=== PATIENT | male | born 2005 | race Caucasian/White ===

== ENCOUNTER 2023-01-06 01:55 | Emergency (ER) | payer MEDICAID ==
[~2023-01-06] VITALS: Ht 170.2 cm; Wt 77.1 kg
--- NOTE | 2023-01-06 02:18 | NUR ---
BIB family via wheel-chair to room #4, informed of plan of care. #20g established, blood collected and sent to lab. ER provider at bedside for exam. No s/s of any distress, c/o left side abd pain and no BM x 4 days.
[2023-01-06] MEDS ORDERED: IV NORMAL SALINE 1000 ML BAG IV ONE (02:30)
[2023-01-06] MEDS ORDERED: FAMOTIDINE. 20 MG/2 ML VIAL IV ONE ×2 (02:30→02:39)
[2023-01-06] MEDS ORDERED: KETOROLAC TROMETHAMINE 15 MG INJ IVP ONE (02:30)
[2023-01-06] MEDS ORDERED: METOCLOPRAMIDE HCL 10 MG/2 ML VIAL IV ONE (02:30)
[2023-01-06 02:32] LABS: HEMATOCRIT 43.9 % (36.7-47.1); MEAN CORPUSCULAR HEMOGLOBIN 29.2 uug (23.8-33.4); MEAN CORPUSCULAR VOLUME 85.6 fL (73.0-96.2); PLATELET COUNT (AUTO) 174 K/uL (152-348)
[2023-01-06] MEDS ORDERED: METOCLOPRAMIDE HCL 10 MG/2 ML VIAL ONE (02:38)
[2023-01-06] MEDS ORDERED: KETOROLAC TROMETHAMINE 15 MG INJ ONE (02:38)
[2023-01-06 02:39] LABS: CARBON DIOXIDE 25 mmol/L (21-32); CHLORIDE 104 mmol/L (98-107); CREATININE 0.8 mg/dL (0.6-1.3); POTASSIUM 3.8 mmol/L (3.5-5.1); UREA NITROGEN, BLOOD 18 mg/dL (7-18)
[2023-01-06 02:45] LABS: ALANINE AMINOTRANSFERASE 74 U/L (16-63); ALKALINE PHOSPHATASE 83 U/L (50-136); ASPARTATE AMINOTRANSFERASE 26 U/L (15-37); BILIRUBIN,DIRECT < 0.1 mg/dL (0.0-0.2); BILIRUBIN,TOTAL 0.3 mg/dL (0.2-1.0); LIPASE 45 U/L (73-393)
--- NOTE | 2023-01-06 02:48 | NUR ---
Medicated as per order, IVF infusing well, will continue to monitor.
--- NOTE | 2023-01-06 03:23 | NUR ---
Patient sleeping at this time, IVF complete, awaiting MD re-eval.
[2023-01-06] MEDS ORDERED: IOHEXOL 300MG/ML 100 ML INFUS..BTL ONE (03:57)
[2023-01-06] MEDS ORDERED: IV NORMAL SALINE 250 ML IV ONE (03:57)
[2023-01-06] MEDS ORDERED: SWABABLE VALVE TRANSFER SET EA MC ONE (03:57)
--- NOTE | 2023-01-06 03:57 | NUR ---
To CT at this time via wheel-chair.
--- NOTE | 2023-01-06 04:11 | NUR ---
Returned from CT, awaiting results.
--- NOTE | 2023-01-06 05:21 | NUR ---
Patient continues to rest without any c/o pain or discomfort.
[2023-01-06 05:22] VITALS: O2SAT 99
--- NOTE | 2023-01-06 05:28 | NUR ---
ER provider at bedside.
[2023-01-06] MEDS ORDERED: MAGNESIUM HYDROXIDE 30 ML LIQUID UDC ONE (05:30)
[2023-01-06] MEDS ORDERED: MAGNESIUM HYDROXIDE 30 ML LIQUID UDC PO ONE (05:30)
[2023-01-06] MEDS ORDERED: POLY17PO4 PO (05:32)
[2023-01-06] MEDS ORDERED: SENN1TAB33 PO (05:32)
--- NOTE | 2023-01-06 05:43 | NUR ---
HL REMOVED, [facility] PROVIDED REMAINS STABLE FOR DISCHARGE.
[2023-01-06 05:44] VITALS: BP 128/64
== END 2023-01-06 05:45 | disposition home or self-care (01) ==
LOC: ER 02:02
DX: K59.00 Constipation, unspecified (principal); F17.210 Nicotine dependence, cigarettes, uncomplicated; Z88.0 Allergy status to penicillin; Z88.5 Allergy status to narcotic agent; Z79.899 Other long term (current) drug therapy
CPT/HCPCS: 99285; 74177; 96374; 96375; 96361; 80076; 80048; 83690; 85025; J3490; J1885; J2765; Q9967; J7040; A4663

== ENCOUNTER 2023-02-01 21:04 | Emergency (ER) | payer MEDICAID ==
[~2023-02-01] VITALS: Ht 170.2 cm; Wt 79.4 kg
[~2023-02-01 21:04] MED LIST: POLY17PO4 PO; SENN1TAB33 PO
[2023-02-01] MEDS ORDERED: TRAM50TA2 PO (21:26)
[2023-02-01] MEDS ORDERED: OXYCODONE/APAP 5-325 MG TABLET PO ONE (21:30)
[2023-02-01] MEDS ORDERED: OXYCODONE/APAP 5-325 MG TABLET ONE (21:35)
[2023-02-01 22:42] VITALS: BP 118/75; TEMP 97.8; O2SAT 98
== END 2023-02-01 22:43 | disposition home or self-care (01) ==
LOC: ER 21:10
DX: L60.0 Ingrowing nail (principal); F17.210 Nicotine dependence, cigarettes, uncomplicated; Z71.6 Tobacco abuse counseling; Z88.0 Allergy status to penicillin; Z88.5 Allergy status to narcotic agent; Z79.899 Other long term (current) drug therapy
CPT/HCPCS: A4663

== ENCOUNTER 2023-12-16 06:16 | Emergency (ER) | payer MEDICAID ==
[~2023-12-16] VITALS: Ht 170.2 cm; Wt 68.0 kg
[~2023-12-16 06:16] MED LIST changes: +TRAM50TA2 PO
[2023-12-16] MEDS ORDERED: NEOMY/BACITRAC/POLYMI OINT 28.35 GM TUBE ONE (06:31)
[2023-12-16] MEDS ORDERED: NEOMY/BACITRA/POLYMYXIN B OINT UD PACKET TP ONE (06:33)
[2023-12-16] MEDS ORDERED: MUPI15CR TP (06:40)
[2023-12-16 07:03] VITALS: BP 131/67; O2SAT 98
== END 2023-12-16 07:07 | disposition home or self-care (01) ==
LOC: ER 07:06
DX: L60.0 Ingrowing nail (principal); F17.200 Nicotine dependence, unspecified, uncomplicated; Z79.899 Other long term (current) drug therapy; Z88.0 Allergy status to penicillin; Z88.5 Allergy status to narcotic agent
CPT/HCPCS: A4606; A4663

== ENCOUNTER 2024-05-17 03:30 | Emergency (ER) | payer MEDICAID ==
[~2024-05-17] VITALS: Ht 172.7 cm; Wt 68.0 kg
[~2024-05-17 03:30] MED LIST changes: +MUPI15CR TP
[2024-05-17] MEDS ORDERED: NEOMY/BACITRA/POLYMYXIN B OINT UD PACKET TP ONE (04:05)
[2024-05-17] MEDS ORDERED: DOXY-326 PO (04:06)
[2024-05-17] MEDS ORDERED: FLUT16SP16 BNOSTRILS (04:06)
[2024-05-17] MEDS ORDERED: [UNRECOGNIZED DRUG - CODE] PO (04:06)
[2024-05-17] MEDS: LORATADINE 10 MG TABLET PO SCH (04:06)
[2024-05-17] MEDS: NEOMY/BACITRA/POLYMYXIN B OINT UD PACKET TP ONE (04:08)
[2024-05-17] MEDS ORDERED: LORATADINE 10 MG TABLET ONE (04:11)
[2024-05-17 04:48] VITALS: BP 127/38; TEMP 98.6; O2SAT 96
== END 2024-05-17 04:15 | disposition home or self-care (01) ==
LOC: ER 03:30
DX: J01.90 Acute sinusitis, unspecified (principal); F17.200 Nicotine dependence, unspecified, uncomplicated; Z79.899 Other long term (current) drug therapy; Z88.0 Allergy status to penicillin; Z88.5 Allergy status to narcotic agent
CPT/HCPCS: A4606; A4663